=== PATIENT | female | born 1995 | race Caucasian/White ===

== ENCOUNTER 2017-11-27 15:34 | Emergency (ER) | payer OTHER, SELFPAY ==
--- NOTE | 2017-11-27 16:04 | XR_ITS ---
XR knee LT 3V HISTORY: Pain following injury ITS.REASON: FELL ORDERING PHYSICIAN: Mayra Link PATIENT AGE: 22 years COMPARISON: None FINDINGS: No fracture or dislocation. No lytic or blastic change. Normal mineralization. No significant arthritic changes evident. No other significant findings IMPRESSION: Negative Knee
[2017-11-27 16:05] VITALS: BP 99/66; PULSE 74; RESP 18; TEMP 37.1; O2SAT 100; BMI 33.5
--- NOTE | 2017-11-27 16:05 | XR_ITS ---
XR ankle LT min 3V HISTORY: Pain following injury ITS.REASON: FELL ORDERING PHYSICIAN: Mayra Link PATIENT AGE: 22 years COMPARISON: None FINDINGS: No fracture or dislocation. No lytic or blastic change. There is normal mineralization.. There are mild hypertrophic changes of the anterior distal tibia and the medial malleolus. There is minimal soft tissue calcification posterior to the ankle joint. IMPRESSION: No acute finding
--- NOTE | 2017-11-27 16:35 | HMH.EDUTC ---
[facility] [place] Disposition Clinical Impression: Knee sprain Qualifiers: Encounter type: initial encounter Involved ligament of knee: other ligament Laterality: left Qualified Code(s): S83.8X2A - Sprain of other specified parts of left knee, initial encounter Ankle sprain Qualifiers: Encounter type: initial encounter Involved ligament of ankle: other ligament Disposition: Home, Self-Care Condition on Discharge: Good Instructions: How To Perform RICE (Rest, Ice, Compress, Elevate), Ankle Sprain, DI for Ankle Sprain, Knee Sprain, DI for Knee Sprain Additional Instructions: *weight bearing as tolerated *RICE, Rest the extremity, Ice 15-20 minutes 3-4 times daily, Compress- wear the leoncio wrap as discussed as much as possible to help reduce swelling and pain, Elevate the extremity when at rest *Leoncio wrap is for support and help control swelling, use it except in the shower. Be sure that is not to tight but not to loose either *Elevate when resting *Ibuprofen every 6-8 hours as needed for pain an inflammation. If need something more can take Tylenol in between doses of Ibuprofen to help Immediately follow up for new or worsening of symptoms, or no noticeable improvement over the next 3-5 days FOllow up with family doctor if no improvement or worsening of symptoms for further evaluation and referral to Orthopedics if warranted Prescriptions: Ibuprofen [Ibuprofen 600mg Tab] 600 mg PO Q6H PRN #20 tab PRN Reason: Moderate Pain Time of Disposition: 16:43 Medical Decision Making - Medical Records Medical records reviewed: Yes: I reviewed the patient's medical records. Vital Signs: 11/27/17 16:05 Temperature 98.7 F Temperature Source Temporal Artery Scan Pulse Rate [Right] 74 Respiratory Rate 18 Blood Pressure [Right Arm] 99/66 Blood Pressure Mean [Right Arm] 77 Blood Pressure Source [Right Arm] Automatic Cuff Blood Pressure Position [Right Arm] Sitting 02 Sat by Pulse Oximetry 100 Oxygen Delivery Method Room Air Orders (Tests/Meds): ORDERS Category Date Time Status XR ankle LT min 3V Stat Exams 11/27/17 16:05 Taken XR knee LT 3V Stat Exams 11/27/17 16:04 Taken - Radiology Data #1 Image(s): Knee Image Reviewed: Yes I have reviewed radiologist's interpretation Preliminary Findings: No Fracture Seen #2 Image(s): Ankle Image Reviewed: Yes I have reviewed radiologist's interpretation Preliminary Findings: No Fracture Seen - Kevin Inquiry Pt receiving controlled substance: No Kevin was queried for this patient: No [facility] [place] HPI - General Stated complaint: ao [id number] fell injured l knee&ankle Mode of Arrival: Wheelchair Source of Information: Patient Limitations: No Limitations Description of Symptoms (Recalled from Triage Doc. by RN): FELL, INJURY LEFT ANKLE, KNEE HEENT Symptoms (Recalled from RN notes): No Resp Symptoms (Recalled from RN notes): No Skin Symptoms (Recalled from RN notes): No MS Symptoms (Recalled from RN notes): Yes Functional Status (Recalled from RN notes): N - History of Present Illness Provider Complaint: Patient states that she was walking down the steps when her left foot slipped off the step and twisted her knee State that she looked down at her leg and her kneecap looked like it was off to the side and state that she moved her leg a little bit and it popped back in place States that family helped her up and she was afraid to bare weight on it so they brought her in to get her checked out - Related Data Previous Rx's Medication Instructions Recorded Ibuprofen [Ibuprofen 600mg Tab] 600 mg PO Q6H PRN #20 tab 11/27/17 Allergies Allergy/AdvReac Type Severity Reaction Status Date / Time budesonide Allergy Mild Verified 11/27/17 16:08 [From RHINOCORT ALLERGY] sumatriptan [From IMITREX] Allergy Mild Verified 11/27/17 16:08 CHOCOLATE (FOOD) Allergy Mild NA-DIZZINES Uncoded 09/16/17 15:40 S NASAL SPRAYS AdvReac Unknown SWELLING Uncoded 09/16/17 15
[2017-11-27 16:38] VITALS: BP 100/67; PULSE 74; RESP 18; TEMP 37.1
--- NOTE | 2017-11-27 16:38 | ED_ITS ---
[facility] [place] Disposition Clinical Impression: Knee sprain Qualifiers: Encounter type: initial encounter Involved ligament of knee: other ligament Laterality: left Qualified Code(s): S83.8X2A - Sprain of other specified parts of left knee, initial encounter Ankle sprain Qualifiers: Encounter type: initial encounter Involved ligament of ankle: other ligament Disposition: Home, Self-Care Condition on Discharge: Good Instructions: How To Perform RICE (Rest, Ice, Compress, Elevate), Ankle Sprain , DI for Ankle Sprain, Knee Sprain, DI for Knee Sprain Additional Instructions: *weight bearing as tolerated *RICE, Rest the extremity, Ice 15-20 minutes 3-4 times daily, Compress- wear the leoncio wrap as discussed as much as possible to help reduce swelling and pain, Elevate the extremity when at rest *Leoncio wrap is for support and help control swelling, use it except in the shower. Be sure that is not to tight but not to loose either *Elevate when resting *Ibuprofen every 6-8 hours as needed for pain an inflammation. If need something more can take Tylenol in between doses of Ibuprofen to help Immediately follow up for new or worsening of symptoms, or no noticeable improvement over the next 3-5 days FOllow up with family doctor if no improvement or worsening of symptoms for further evaluation and referral to Orthopedics if warranted Prescriptions: Ibuprofen [Ibuprofen 600mg Tab] 600 mg PO Q6H PRN #20 tab PRN Reason: Moderate Pain Time of Disposition: 16:43 Medical Decision Making - Medical Records Medical records reviewed: Yes: I reviewed the patient's medical records. Vital Signs: 11/27/17 16:05 Temperature 98.7 F Temperature Source Temporal Artery Scan Pulse Rate [Right] 74 Respiratory Rate 18 Blood Pressure [Right Arm] 99/66 Blood Pressure Mean [Right Arm] 77 Blood Pressure Source [Right Arm] Automatic Cuff Blood Pressure Position [Right Arm] Sitting 02 Sat by Pulse Oximetry 100 Oxygen Delivery Method Room Air Orders (Tests/Meds): ORDERS Category Date Time Status XR ankle LT min 3V Stat Exams 11/27/17 16:05 Taken XR knee LT 3V Stat Exams 11/27/17 16:04 Taken - Radiology Data #1 Image(s): Knee Image Reviewed: Yes I have reviewed radiologist's interpretation Preliminary Findings: No Fracture Seen #2 Image(s): Ankle Image Reviewed: Yes I have reviewed radiologist's interpretation Preliminary Findings: No Fracture Seen - Kevin Inquiry Pt receiving controlled substance: No Kevin was queried for this patient: No [facility] [place] HPI - General Stated complaint: [id number] fell injured l knee&ankle Mode of Arrival: Wheelchair Source of Information: Patient Limitations: No Limitations Description of Symptoms (Recalled from Triage Doc. by RN): FELL, INJURY LEFT ANKLE, KNEE HEENT Symptoms (Recalled from RN notes): No Resp Symptoms (Recalled from RN notes): No Skin Symptoms (Recalled from RN notes): No MS Symptoms (Recalled from RN notes): Yes Functional Status (Recalled from RN notes): N - History of Present Illness Provider Complaint: Patient states that she was walking down the steps when her left foot slipped off the step and twisted her knee State that she looked down at her leg and her kneecap looked like it was off to the side and state that she moved her leg a little bit and it popped back in place States that family helped her up and she was afraid to bare weight on it
== END 2017-11-27 17:01 | disposition home or self-care (01) ==
PROVIDERS: Emergency Provider Nurse Practitioner
DX: S93.402A Sprain of unspecified ligament of left ankle, initial encounter (principal); S83.92XA Sprain of unspecified site of left knee, initial encounter; W10.9XXA Fall (on) (from) unspecified stairs and steps, initial encounter; Y92.019 Unspecified place in single-family (private) house as the place of occurrence of the external cause
CPT/HCPCS: 73562; 73610; 99202